=== PATIENT | female | born 1950 | race Two or more races ===

== ENCOUNTER 2023-02-13 23:30 | Inpatient (IN) | payer OTHER ==
[~2023-02-13] VITALS: Ht 165.1 cm; Wt 75.7 kg
[2023-02-13] MEDS ORDERED: PEPCID AC20 MG (23:42)
--- NOTE | 2023-02-14 00:06 | NUR ---
PACIENTE FEMENINA ALERTA Y ORIENTADA X3, REFIERE TENER DIFICULTAD RESPIRATORIA, SE LE COLOCA LA OXIMETRIA UN 90% Y MARREOS. SE LE NOTIFICA AL MEDICO EN TURNO Y SE COLOCA EN CRITICO.
--- NOTE | 2023-02-14 01:40 | NUR ---
SE RECIBE PTE ALERTA Y ORIENTADA X3, SE COLOCA EN CAMA CON BARANDAS ELEVADAS. SE CONECTA A MONITOR CARDIACO Y OXIMETRIA. SE COLOCA EN POSICION VINSON Y SE COLOCA NON REBREATHING AL 100%. SE OBSERVA PTE CON RESPIRACIONES ABDOMINALES CON TAQUIPNEA. SE CANALIZA EN BRAZO DERECHO ANGIO #20 Y MANO DERECHA ANGIO #22 AREAS LIBRES DE EDEMA Y DE ENROJECIMIENTO. SE COLOCA DRIP DE TRIDIL 50MG/250ML BAJANDO A 1ML/HR ANALI ORDEN MEDICA. SE ADMINISTRAN MEDICAMENTOS ANALI ORDEN MEDICA. SE INSERTA KAUR DE MANERA ESTERIL SE OBSERVAN 200ML DE ORINA COLOR AMARILLO INTENSO. SE OBSERVA EDEMA EN EXTREMIDADES INFERIORES. HIJA DE LA PTE POR DESEOS DE LA PTE FIRMA HOJA DE DIRECTRICES ANTICIPADAS PARA DNI. SE LE COLOCA FREDERICK JOANNE EN MANO IZQUIERDA IDENTIFICANDO DNI. SE EDUCA A PTE Y FAMILIAR SOBRE TRATAMIENTO MEDICO. SE MANTIENE BAJO OBSERVACION POR CAMBIOS.
--- NOTE | 2023-02-14 07:09 | NUR ---
7:00AM: SE RECIBE PACIENTE DEL TURNO ANTERIOR. LA MISMA SE ENCUENTRA ALERTA Y ORIENTADA X3, SE LE ORIENTA SOBRE CONTINUIDAD DE TRATAMIENTO Y VERBALIZA ENTENDER. SE OBSERVA PACIENTE CONECTADA A MONITOR CARDIACO Y OXIMETRIA DE PULSO CONTINUA. PACIENTE EN POSICION SEMI VINSON, SE OBSERVA SATURACION AL 100% ASISTIDA CON NON REBREATHING MASK. SE OBSERVA PACIENTE CANALIZADA EN ANTEBRAZO DERECHO CON ANGIO # 20, EL MISMO SE ENCUENTRA PATENTE, PAUL DE ERITEMA Y EDEMA RECIBIENDO TRIDIL 50MG/250ML BAJANDO A 1ML/HR Y CANALIZADA EN MANO IZQUIERDA CON ANGIO #24 CON H/L. EL MISMO SE ENCUENTRA PATENTE. SE OBSERVA KAUR CATETER CON EGRESO URINARIO COLOR AMARILLO INTENSO Y PAUL DE SANGRADO. SE OBSERVAN AMBAS EXTREMIDADES SUPERIORES E INFERIORES CON EDEMA. SE MONITOREA PRESION MANUAL, SE LE NOTIFICA LA MISMA A DR KEITH E IGUAL INDICA CONTINUAR CON TRIDIL BAJANDO A 1ML/HR. SE MANTIENE PACIENTE EN OBSERVACION POR CONSULTA CON DR ZHOU Y POR CAMBIOS EN TRATAMIENTO MEDICO.
--- NOTE | 2023-02-14 13:29 | NUR ---
SE LLAMA A DR ZHOU POR CONSULTA DE DIETA Y EL MISMO ORDENA VIA TELEFONICA DIETA BAJA EN SODIO Y PAUL DE IRRITANTES. SE EJECUTA ORDEN MEDICA.
== END 2023-02-20 22:32 | disposition expired | DRG 177 ==
LOC: ER 23:30 → SEC-K 02-14 15:31 → MEDJ 02-14 15:31 → SEC-K 02-14 18:36 → MEDJ 02-15 09:52
PROVIDERS: ADMIT Internal Medicine; ATTEND Internal Medicine
PROC: 3E0F7GC Introduction of Other Therapeutic Substance into Respiratory Tract, Via Natural or Artificial Opening (ICD-10-PCS; 2023-02-14)
PROC: B24BYZZ Ultrasonography of Heart with Aorta using Other Contrast (ICD-10-PCS; 2023-02-14)
PROC: 4A12X4Z Monitoring of Cardiac Electrical Activity, External Approach (ICD-10-PCS; 2023-02-15)
PROC: BW24ZZZ Computerized Tomography (CT Scan) of Chest and Abdomen (ICD-10-PCS; 2023-02-15)
PROC: 02HV33Z Insertion of Infusion Device into Superior Vena Cava, Percutaneous Approach (ICD-10-PCS; principal; 2023-02-17)
DX: J69.0 Pneumonitis due to inhalation of food and vomit (principal); I21.A1 Myocardial infarction type 2; R65.21 Severe sepsis with septic shock; J96.91 Respiratory failure, unspecified with hypoxia; J96.01 Acute respiratory failure with hypoxia; J90 Pleural effusion, not elsewhere classified; I50.1 Left ventricular failure, unspecified; J91.8 Pleural effusion in other conditions classified elsewhere; I11.0 Hypertensive heart disease with heart failure; I50.9 Heart failure, unspecified; I49.3 Ventricular premature depolarization; J45.909 Unspecified asthma, uncomplicated; K74.60 Unspecified cirrhosis of liver; E80.6 Other disorders of bilirubin metabolism; D69.6 Thrombocytopenia, unspecified; Z66 Do not resuscitate